=== PATIENT | female | born 1955 | race Caucasian/White ===

== ENCOUNTER → 2016-11-10 | Outpatient (CLI) | payer OTHER ==
[2013-12-24 05:00] VITALS: BP 114/71
[~2016-11-10] MED LIST: LEVO500T38 PO; LISI1TAB3 PO
--- NOTE | 2016-11-10 11:26 | RAD ---
Indication: Lung cancer screening. The patient does have a history of asthma and COPD. Patient also has a history of hypertension and smoking. The patient reports a 50 pack-year history. Axial imaging through the chest was performed without contrast. No prior studies are available for comparison. No axillary lymphadenopathy is identified. There is a calcified lymph node in the right paratracheal location measuring 1.4 cm. Calcified lymph nodes in the subcarinal region are noted as well as within bilateral benjamin consistent with prior granulomatous exposure. No pericardial or pleural effusion is identified. There is a noncalcified nodule in the right upper lobe measuring 5 mm, image 72. There is a 4 mm nodule identified in the left lower lobe laterally, image 195. No other nodules are seen. The upper abdomen shows multiple calcified granulomas throughout the spleen. There are multiple stones within the gallbladder. Impression: Bilateral nodules, as described. Follow-up per Fleischner Society recommendations is recommended. FLEISCHNER CRITERIA: Nodule size: Less than or equal to 4 mm * Low risk patients: No followup needed * High risk patients: Followup at 12 months and if no change, no further imaging needed Nodule size: >4-6 mm * Low risk patients: Followup at 12 months and if no change, no further imaging needed * High risk patients: Initial followup CT at 6-12 months and then at 18-24 months if no change Nodule size: >6-8 mm * Low risk patients: Initial followup CT at 6-12 months and then at 18-24 months if no change * High risk patients: Initial followup CT at 3-6 months and then at 9-12 months and 24 months if no change Nodule size: >8 mm * Either low or high risk patients: Followup CTs at 3, 9, and 24 months; and/or dynamic contrast-enhanced CT, PET, and/or biopsy. Low risk patients: Minimal or absent history of smoking and/or other known risk factors. High risk patients: History of smoking or other known risk factors. PQRS Compliance Statement: One or more of the following individualized dose reduction techniques were utilized for this examination: 1. Automated exposure control 2. Adjustment of the mA and/or kV according to patient size 3. Use of iterative reconstruction technique
== END | disposition home or self-care (01) ==
LOC: CT 10:33
PROVIDERS: ATTEND Family Medicine
DX: Z12.2 Encounter for screening for malignant neoplasm of respiratory organs (principal); F17.200 Nicotine dependence, unspecified, uncomplicated
CPT/HCPCS: 71250

== ENCOUNTER → 2018-05-09 | Outpatient (CLI) | payer OTHER ==
[2013-12-24 05:00] VITALS: BP 114/71
[~2018-05-09] MED LIST changes: -LEVO500T38 PO; +LEVO500T59 PO
--- NOTE | 2018-05-09 16:47 | RAD ---
CT chest without contrast dated 05/09/2018. COMPARISON: 11/10/2016. CLINICAL INDICATION: Lung cancer screening. Tobacco use. TECHNIQUE: Contiguous axial imaging the chest performed without the administration of intravenous contrast. Study performed as low-dose lung cancer screening protocol with thin cut coronal and sagittal reconstruction. One or more of the following individualized dose reduction techniques were utilized for this examination: 1. Automated exposure control 2. Adjustment of the mA and/or kV according to patient size 3. Use of iterative reconstruction technique. FINDINGS: Heart size upper limits of normal. No pericardial effusion. Scattered coronary calcifications. There are calcified precarinal, subcarinal and right hilar lymph nodes. No mediastinal, hilar or axillary lymphadenopathy. Possible low-density nodule in the right lobe thyroid gland measures up to 1.6 cm in size, unchanged. There are a few borderline enlarged lymph nodes of the right axilla, unchanged. Central airways are patent. Mild diffuse bronchial wall thickening. Small subpleural nodule in the lingula on image 148 measures 3 mm, unchanged. 3 mm nodule along the major fissure on the left on image 127 is stable. There are a few calcified granuloma on the right. No new parenchymal nodule or mass. No pleural effusion. Limited images of the upper abdomen unremarkable. Calcified stones within the gallbladder. IMPRESSION: 1. There are a few scattered noncalcified pulmonary nodules on the left, nonspecific but unchanged from prior study. Lung RADS category 2. Recommend follow-up LDCT in one year. 2. Mild emphysema. 3. Coronary artery calcifications. 4. Old granulomatous disease. 5. Cholelithiasis. Electronically signed by: Jaime Bull MD (05/09/2018 4:44 PM) [id number]
--- NOTE | 2018-05-12 09:10 | RAD ---
DATE: 05/09/2018 EXAM: DIGITAL SCREEN BILAT W/CAD HISTORY: Routine screening COMPARISON: 05/10/2016 This study was interpreted with the benefit of Computerized Aided Detection (CAD). Breast Density: FATTY The breast parenchyma is primarily fatty replaced. Breast parenchyma level density A. FINDINGS: 2-D and 3-D tomosynthesis imaging was performed in CC and MLO projections. No new or enlarging breast densities are seen. Coarse benign type calcifications are present. No suspicious microcalcifications have developed. IMPRESSION: There is no mammographic evidence of malignancy in either breast. BI-RADS CATEGORY: 2 BENIGN FINDING(S) RECOMMENDED FOLLOW-UP: 12M 12 MONTH FOLLOW-UP PQRS compliance statement: Patient information was entered into a reminder system with a target due date for the next mammogram. Mammography is a sensitive method for finding small breast cancers, but it does not detect them all and is not a substitute for careful clinical examination. A negative mammogram does not negate a clinically suspicious finding and should not result in delay in biopsying a clinically suspicious abnormality. "Our facility is accredited by the [employer] Mammography Program."
== END | disposition home or self-care (01) ==
LOC: CT 13:43
PROVIDERS: ATTEND Family Medicine
DX: Z12.31 Encounter for screening mammogram for malignant neoplasm of breast (principal); Z12.2 Encounter for screening for malignant neoplasm of respiratory organs; F17.200 Nicotine dependence, unspecified, uncomplicated; J43.8 Other emphysema; I25.10 Atherosclerotic heart disease of native coronary artery without angina pectoris; D71 Functional disorders of polymorphonuclear neutrophils; K80.20 Calculus of gallbladder without cholecystitis without obstruction; R91.8 Other nonspecific abnormal finding of lung field
CPT/HCPCS: 77067; G0297